=== PATIENT | male | born 1975 | race Caucasian/White ===

== ENCOUNTER 2021-11-25 12:26 | Inpatient (IN) | payer OTHER ==
[~2021-11-25] VITALS: Ht 182.9 cm; Wt 95.3 kg
[2021-11-25 13:28] LABS: HEMOGLOBIN 12.8 gm/dl (14.0-17.5); RED BLOOD COUNT 3.81 M/UL (4.20-5.50); WHITE BLOOD COUNT 6.8 K/UL (4.5-11.0)
[2021-11-26 03:08] LABS: HEMOGLOBIN 11.8 gm/dl (14.0-17.5); RED BLOOD COUNT 3.47 M/UL (4.20-5.50)
[2021-11-26 03:10] LABS: WHITE BLOOD COUNT 4.9 K/UL (4.5-11.0)
[2021-11-26 03:38] LABS: BUN/CREATININE RATIO 17 (0-10)
[2021-11-26] MEDS ORDERED: ALENDRONATE SOD70 MG PO (11:26)
[2021-11-26] MEDS ORDERED: LIPITOR TAB 2020 MG PO (11:26)
[2021-11-26] MEDS ORDERED: CALCIUM500 M1 PO (11:27)
[2021-11-26] MEDS ORDERED: CALCITRIOL0.25 MCG PO (11:27)
[2021-11-26] MEDS ORDERED: DILTIAZEM HCL120 MG PO (11:28)
[2021-11-26] MEDS ORDERED: PREDNISONE5 MG PO (11:28)
[2021-11-26] MEDS ORDERED: FERROUS GLUCON324 M1 PO (11:29)
[2021-11-26] MEDS ORDERED: PHOSLYRA PO (11:29)
[2021-11-26] MEDS ORDERED: ASPIRIN EC81 MG PO (11:30)
[2021-11-26] MEDS ORDERED: NEORAL100 MG PO (11:30)
[2021-11-26] MEDS ORDERED: ALLERGY RELIEF10 M1 PO (11:31)
[2021-11-26] MEDS ORDERED: FUROSEMIDE20 MG PO (11:31)
[2021-11-26] MEDS ORDERED: NEORAL25 MG PO (11:31)
[2021-11-26] MEDS ORDERED: LOSARTAN POTASS25 MG PO (11:32)
[2021-11-26] MEDS ORDERED: MAGNESIUM OXID400 M1 PO (11:32)
[2021-11-26] MEDS ORDERED: ALLOPURINOL300 MG PO (11:32)
[2021-11-26] MEDS ORDERED: CARVEDILOL25 MG PO (11:33)
[2021-11-27 07:11] LABS: HEMOGLOBIN 10.9 gm/dl (14.0-17.5); RED BLOOD COUNT 3.3 M/UL (4.20-5.50)
--- NOTE | 2021-11-27 11:53 | NUR ---
11/27/21 1150 REPORT CALLED TO SERGIO TO BE TRANSFERRED TO ROOM [id number]
[2021-11-28] MEDS ORDERED: MYCOSTATIN100000 UTS PO (09:52)
[2021-11-28] MEDS ORDERED: PROAIR HFA8.5 GM INH (09:53)
[2021-11-28] MEDS ORDERED: AZITHROMYCIN500 MG PO (10:04)
[2021-11-28] MEDS ORDERED: OMNICEF 300 MG300 MG PO (10:13)
== END 2021-11-28 12:32 | disposition home or self-care (01) | DRG 698 ==
LOC: ER1 12:26 → CDU 18:20 → 3 EAST 11-26 19:53 → M/S 11-27 13:52
PROVIDERS: Internal Medicine Nephrology; Physician Assistant; ADMIT Internal Medicine
PROC: 8E0ZXY6 Isolation (ICD-10-PCS; principal; 2021-11-25)
DX: T86.19 Other complication of kidney transplant (principal); U07.1 COVID-19; J12.82 Pneumonia due to coronavirus disease 2019; D84.89 Other immunodeficiencies; J98.11 Atelectasis; N17.9 Acute kidney failure, unspecified; N25.81 Secondary hyperparathyroidism of renal origin; N18.4 Chronic kidney disease, stage 4 (severe); R13.14 Dysphagia, pharyngoesophageal phase; I12.9 Hypertensive chronic kidney disease with stage 1 through stage 4 chronic kidney disease, or unspecified chronic kidney disease; M10.9 Gout, unspecified; E78.5 Hyperlipidemia, unspecified; R13.10 Dysphagia, unspecified; E86.0 Dehydration; K20.90 Esophagitis, unspecified without bleeding; Z79.52 Long term (current) use of systemic steroids; Z79.899 Other long term (current) drug therapy; Z79.82 Long term (current) use of aspirin
CPT/HCPCS: 36415; 71045; 80048; 80053; 80158; 80202; 82550; 82553; 82728; 83036; 83540; 83550; 83874; 83970; 84100; 84484; 85025; 85027; 85379; 87040; 87081; 87880; 93005; 94640; 94760; 99285; G0378; J0360; J1100; J1644; J2185; J2270; J3370; J7030; J7070; J7515